=== PATIENT | female | born 1980 | race Two or more races ===

== ENCOUNTER 2019-06-20 13:30 | Inpatient (IN) | payer OTHER ==
[~2019-06-20] VITALS: Ht 167.6 cm; Wt 90.7 kg
[2019-07-10] MEDS ORDERED: PRENATAL TABLE1 EAC1 PO (02:33)
== END 2019-07-12 11:26 | disposition home or self-care (01) | DRG 768 ==
LOC: O/R 13:30 → OB/GYN 07-10 00:07 → LDR 07-10 00:07 → OB/GYN 07-10 00:35 → SURH 07-17 13:30 → LDR 07-17 13:30
PROVIDERS: ADMIT Specialist
PROC: 10E0XZZ Delivery of Products of Conception, External Approach (ICD-10-PCS; principal; 2019-07-10)
PROC: 0DQR0ZZ Repair Anal Sphincter, Open Approach (ICD-10-PCS; 2019-07-10)
PROC: 0UQGXZZ Repair Vagina, External Approach (ICD-10-PCS; 2019-07-10)
PROC: 0W8NXZZ Division of Female Perineum, External Approach (ICD-10-PCS; 2019-07-10)
PROC: 4A1HXCZ Monitoring of Products of Conception, Cardiac Rate, External Approach (ICD-10-PCS; 2019-07-10)
DX: O70.21 Third degree perineal laceration during delivery, IIIa (principal); Z37.0 Single live birth; Z3A.39 39 weeks gestation of pregnancy